=== PATIENT | female | born 1955 | race Caucasian/White ===

== ENCOUNTER 2017-10-13 07:42 | Emergency (ER) | payer OTHER ==
[~2017-10-13] VITALS: Ht 157.5 cm; Wt 63.5 kg
[~2017-10-13 07:42] MED LIST: DIOVAN160 M1; EVISTA60 MG; TOPROL XL100 M1
== END 2017-10-13 10:58 | disposition home or self-care (01) ==
LOC: ER 07:42
DX: S93.602A Unspecified sprain of left foot, initial encounter (principal); X50.3XXA Overexertion from repetitive movements, initial encounter; Y93.89 Activity, other specified; Y92.89 Other specified places as the place of occurrence of the external cause; Y99.8 Other external cause status

== ENCOUNTER 2019-05-14 15:10 | Outpatient (CLI) | payer OTHER | END 2019-05-14 16:03 | disposition home or self-care (01) | LOC: NUCLEAR 15:10 | DX: M81.0 Age-related osteoporosis without current pathological fracture (principal) ==

== ENCOUNTER 2020-12-29 13:51 | Outpatient (CLI) | payer OTHER | END 2020-12-29 14:02 | disposition home or self-care (01) | LOC: NUCLEAR 13:51 | DX: M81.0 Age-related osteoporosis without current pathological fracture (principal) ==

== ENCOUNTER 2022-07-30 13:37 | Outpatient (CLI) | payer OTHER | END 2022-07-30 13:49 | disposition home or self-care (01) | LOC: NUCLEAR 13:37 | PROVIDERS: ATTEND General Practice | DX: M81.0 Age-related osteoporosis without current pathological fracture (principal) ==

== ENCOUNTER 2024-11-26 11:08 | Outpatient (CLI) | payer OTHER | END 2024-11-26 11:12 | disposition home or self-care (01) | LOC: RAD 11:08 | DX: M85.80 Other specified disorders of bone density and structure, unspecified site (principal); M06.9 Rheumatoid arthritis, unspecified; J01.90 Acute sinusitis, unspecified; I10 Essential (primary) hypertension ==